=== PATIENT | male | born 1960 | race Caucasian/White ===

== ENCOUNTER 2016-08-22 09:24 | Emergency (ER) | payer OTHER ==
--- NOTE | 2016-08-25 12:41 | ER ---
ADMIT: 08/22/2016 RM/LOC: ER [facility] MR#: [id number] [facility] [address] [place] [id number] [address] [place] [address] Emergency Room Report SEX: M AGE: 56 : 1960 DATE: 08/22/2016 ADDENDUM: A 56-year-old white male coming in with flank pain. He has had kidney stones before. Recently, before he left [place], he evidently had CT, they said he had stones. [place] like some were passing. The CT did not show any urethral stones. He has lots of phleboliths, he could have passed this already. CBC, chemistry, urine are all otherwise negative. We will discharge him home. Follow up as needed when he gets back home. CONDITION ON DISCHARGE: Good. Gus Calderon MD/ jessi JOB #: [id number] CC: Gus Calderon MD, Attending Physician UNKNOWN, Family Physician
== END 2016-08-22 12:55 | disposition home or self-care (01) ==
LOC: ER 09:24
DX: N13.2 Hydronephrosis with renal and ureteral calculous obstruction (principal)